=== PATIENT | male | born 1960 | race Caucasian/White ===

== ENCOUNTER → 2018-10-12 11:58 | Day surgery (SDC) | payer BC ==
[~2018-10-12 11:58] MED LIST: Acetaminophen TAB* 325 MG ONE; Acetaminophen TAB* 325 MG PO ONE; Acetaminophen TAB* 325 MG PO PRN; Buffered Lidocaine 1% SYRIN* 1 ML/SYRINGE INTRADERM ONE; Bupivacaine 0.25% EPI 200,000* 30 ML SDV ONE; Cisatracurium* 2 MG/ML MDV 5 ML ONE; Dexamethasone IV* 4 MG/ML 1 ML (4 MG) ONE; DiMENhydriNATE IV* 50 MG/ML VIAL IV PUSH PRN; EPHEDrine (Pressors)* 50 MG/ML VIAL ONE; Famotidine IV* 10 MG/ML 2 ML (20 mg) ONE; Gabapentin CAP(*) 300 MG ONE; Gabapentin CAP(*) 300 MG PO ONE; HYDROcodone/ACETAMIN 5-325 MG* 1 TAB PO PRN; Ketorolac INJ* 30 MG/ML 1 ML VIAL ONE; Lactated Ringers 1000 ML Bag* 1,000 ML IV SCH; Levalbuterol 0.63MG/3ML NEB* UNIT OF USE INH PRN; Lidocaine 2% PF * 5 ML VIAL ONE; Midazolam* 1 MG/ML 2 ML VIAL (2 MG) ONE; Naloxone* 0.4 MG/ML 1 ML VIAL IV PRN; Ondansetron INJ* 2 MG/ML VIAL IV PRN; PROCHLORPERAZINE INJ 5 MG/ML 2 ML VIAL IV PRN; Propofol* 10 MG/ML 20 ML BTL ONE; ceFAZolin 2 GM PREMIX in ORs 2 GM/50 ML BAG IVPB ONE; diPHENhydraMINE IV* 50 MG/ML 1 ml VIAL (BENADRYL) ONE; fentaNYL* 50 MCG/ML 2 ML VIAL (100 MCG VIAL) IV PRN; fentaNYL* 50 MCG/ML 2 ML VIAL (100 MCG VIAL) ONE
--- NOTE | 2018-10-12 16:10 | BRIEFOPN ---
Brief Operative Note - Surgery Procedures: OPERATIVE REPORT Pre-op: Left inguinal hernia Post-Op: Left indirect inguinal hernia Procedure:Laparoscopic repair with mesh of left indirect inguinal hernia Surgeon: MD Silvana Asst: Leti ROWE Anes: general with local , Dr. Siu IVF: 1 liter of crystalloid EBL:min Specimen: none Drain: none Wound: 1 To PACU
[2018-10-12] MEDS: diPHENhydraMINE IV* 50 MG/ML 1 ml VIAL (BENADRYL) IV PRN ×2 (17:00→17:15)
[2018-10-12 19:33] VITALS: BP 131/81
--- NOTE | 2018-10-12 22:05 | OP ---
DATE OF OPERATION: 10/12/18 - [facility] DATE OF : 60 SURGEON: Dr. Pina. ST[employer]ISHER MACHINE: SOLEDAD Mehta. ANESTHESIOLOGIST: Dr. Siu. ANESTHESIA: General with local. PRE-OP DIAGNOSIS: Left inguinal hernia. POST-OP DIAGNOSIS: Left indirect inguinal hernia. OPERATIVE PROCEDURE: Total extraperitoneal laparoscopic repair of a left indirect inguinal hernia with mesh. WOUND CLASSIFICATION: I. COMPLICATIONS: None. DRAINS: None. SPECIMENS: None. DESCRIPTION OF PROCEDURE: Written informed consent was obtained. The left groin was marked with indelible ink and preoperative antibiotics were administered. The patient was taken to the operating room and placed in the supine position. Sequential compression devices and a warming blanket were applied. General anesthesia was administered. The Rizzo catheter was inserted and the abdomen and both groins were prepped and draped in the usual sterile fashion. Time-out verification was completed. A small transverse incision was made just below the umbilicus at the midline just to the left of the midline, carried down to the anterior rectus sheath on the left, and this was divided transversely. The muscle was retracted laterally to expose the posterior sheath and the preperitoneal space was developed bluntly inferiorly towards the pubic tubercle and the Spacemaker balloon was then inserted and without difficulty, passed down to the pubic tubercle. The balloon was then inflated to develop the preperitoneal space without difficulty and under direct vision of the camera. The balloon was then removed and a 12 mm blunt port was inserted into the space and the extraperitoneal space was insufflated to 12 mmHg. The patient was placed in slight Trendelenburg position. Two 5 mm ports were placed in the midline inferior to the 12 mm port for working ports. The pubic tubercle medially was identified as well as Chris ligament extending off to the left side. The epigastric vessels were identified entering the anterior abdominal wall. These were protected from injury throughout. More laterally, some adventitial tissue was to expose the anterior abdominal wall and the iliopubic tract as it extended laterally to the iliac crest. Laterally, I was able to identify the reflection of the peritoneum and when I worked medially, it was apparent that there was an indirect inguinal hernia sac extending into the internal ring. I appreciated no evidence of a direct space hernia or a femoral hernia. The indirect hernia sac was then carefully from the surrounding cord structures. The vas deferens was identified and protected from injury throughout. The peritoneal edge was then dissected back into the retroperitoneum in preparation for mesh placement. Once I felt that the hernia had been adequately reduced and exposed, a 10 x 15 cm Bard Covidien self-gripping mesh was then folded and wet and placed in saline. It was then passed into the extraperitoneal space and was opened to cover the direct and indirect space with generous overlap onto the anterior abdominal wall as well as the retroperitoneum. Care was made to prevent the peritoneal reflection in the retroperitoneum from extending down towards the mesh. I had the mesh cross the midline nicely and it covered the direct and indirect spaces with generous overlap. Once this was complete, hemostasis was assured. The mesh was then held into place and under direct vision, the space was desufflated. All ports were then removed. The anterior rectus sheath was closed with interrupted 0 Vicryl suture. The skin of all 3 incisions was approximated with subcuticular 4-0 Vicryl suture. Steri- Strips were applied. The patient tolerated the procedure well and was taken to the recovery room in stable condition. [id number] #: [id number] RIAN
== END | disposition home or self-care (01) ==
LOC: OR 11:58
PROVIDERS: ATTEND Surgery
DX: K40.90 Unilateral inguinal hernia, without obstruction or gangrene, not specified as recurrent (principal); I10 Essential (primary) hypertension; J45.909 Unspecified asthma, uncomplicated; E03.9 Hypothyroidism, unspecified; N50.3 Cyst of epididymis
CPT/HCPCS: A9270-GY; C1781; J0690; J1100; J1200; J1885; J2250; J2704; J3010